=== PATIENT | female | born 1960 | race Caucasian/White ===

== ENCOUNTER → 2023-07-30 | Outpatient (CLI) | payer MEDICAID, SELFPAY ==
[2023-07-30] VITALS (15 sets, daily range): BP systolic 127–207; BP diastolic 66–132; PULSE 62–70; RESP 11–21; TEMP 36.2; O2SAT 89–96; BMI 41.5
--- NOTE | 2023-07-30 | ASPIGT_PTH ---
PATIENT: LAVON ROGERS LOC: CT U#:[id number] AGE/SX: 63/F ROOM: RE07/30/[address]: Dr. Alanna Clarke MD : 1960 BED: DIS: 07/30/2023 SPEC #: [id number] RECD: 07/30/23 09:30 STATUS: ALEJANDRO SAMANTA #: [id number] DAVION: 07/30/23 00:[address]: Alanna Clarke DEPT: SURGICAL PATHOLOGY RECD BY: Cristine Mcneil ENTERED: 07/30/23 10:01 SP TYPE: ASP RAD OTHR DR: Dr. Yadira Dupree MD Tissues: Lung, NOS Procedures: FNA Specimen Adequacy Special Stain Group II Surgery Specimen Level IV Imprint (control) HEADER OPERATION: Ct guided Right lung core biopsy PRE-OP DIAGNOSIS: Lung nodule TISSUE SUBMITTED: Ct right lung core biopsy MICROSCOPIC DIAGNOSIS Right lung, Ct guided core biopsy; Lung parenchymal tissue, negative for malignancy. See comment. FISH/ 08/02/2023 COMMENT The specimen is evaluated at the time of biopsy by Dr. Fournier. Immediate Evaluation = Negative for malignant cells. Correlation with clinical, radiologic findings and appropriate follow up are necessary. Case has been reviewed in consultation with Dr. Alonso who concurs with the above diagnosis. IDC:AM MICROSCOPIC DESCRIPTION Slides are reviewed. GROSS DESCRIPTION Received in fixative is one container labeled with the patient's name and designated Right lung. The specimen consists of multiple irregular fragments of light snyder soft tissue that in aggregate measure 2.5 x 0.1 x <0.1 cm. The specimen is totally submitted in one cassette. Three touch imprints are prepared at the time of core biopsy. FISH/ 07/30/2023 TC:5 CPT: 46679,20102
[2023-07-30 08:09] LABS: Absolute Lymphocyte Count 2.01 X10^3/uL (0.83-4.51); Absolute Neutrophil Count 5.5 X10^3/uL (2.0-7.7); Basophil# 0.05 X10^3/uL; Basophil% 0.6 % (0-1); Eosinophil# 0.09 X10^3/uL; Eosinophils% 1.1 % (0-5); Hematocrit 46.3 % (37-47); Hemoglobin 14.5 g/dL (12.0-15.0); Lymphocyte # 2.01 X10^3/ul (0.83-4.51); Lymphocyte % 24.2 % (19-41); Mean Corp Hgb Conc 31.3 g/dL (32-36); Mean Corpuscular Hgb 27.9 pg (27.0-32.0); Mean Corpuscular Volume 89.2 fL (81-99); Mean Platelet Vol. 11.3 fl (6.2-12.0); Monocyte# 0.63 X10^3/uL; Monocyte% 7.6 % (0-10); NRBC Flagged by Analyzer 0 % (0-5); Neutrophil # 5.49 X10^3/uL (2.7-7.7); Platelet Count 202 K/mm3 (150-450); RBC Distribution Width CV 13.9 % (11.6-14.6); RBC Distribution Width SD 45.1 fl (35.1-43.9); Red Blood Count 5.19 M/mm3 (4.2-5.4); White Blood Count 8.3 K/mm3 (4.4-11.0)
[2023-07-30 08:16] LABS: International Normalized Ratio 0.9; Prothrombin Time (Protime)PT. 12.3 SECONDS (11.7-14.9)
[2023-07-30 08:17] LABS: Partial Thromboplast Time 27.4 Seconds (24.1-36.2)
[2023-07-30] MEDS: 0.9% Normal Saline (250mL Bag) 250 ML 15 ML IV (08:44)
[2023-07-30] MEDS: 0.9% Saline Lock 10 ML Syringe IV (08:49)
[2023-07-30] MEDS: Midazolam 2 MG/2 ML Syringe IV (09:14)
[2023-07-30] MEDS: fentaNYL 100 MCG/2 ML Ampul IV (09:15)
[2023-07-30] MEDS: Lidocaine 2% (20 ml mdv) 20 ML Vial INFILT (09:24)
[2023-07-30] MEDS: Ondansetron 4 MG/2 ML Vial IV (09:45)
--- NOTE | 2023-07-30 09:45 | RAD_ITS ---
STUDY: X-RAY CHEST REASON FOR EXAM: Female, 63 years old. Immediately post lung biopsy -- Immediately post lung biopsy TECHNIQUE: AP inspiration and expiration views. COMPARISON: None. FINDINGS: The patient is status post right lung biopsy. No evidence of pneumothorax. RAD/Chest Insp/Exp 2 View IMPRESSION: No evidence of pneumothorax on the immediate post right lung biopsy radiographs. Electronically Signed: Everett Do MD at 10:23 EDT ,
--- NOTE | 2023-07-30 10:20 | PRO.PCM_ITS ---
Procedure Report Date of Procedure: 07/30/23 Assessment & Plan Assessment/Plan (1) Right lower lobe pulmonary nodule: PLAN: PROCEDURE: CT GUIDED CORE NEEDLE LUNG BIOPSY ORDERING PROVIDER: Dr. Clarke INDICATION: Female, 63 years old. Right lower lobe pulmonary nodule. PROVIDER: MARGARET Craven CONSENT: Written informed consent was obtained having explained the risks, benefits and alternatives in detail with the patient who accepted the risks and agreed to proceed. Laboratory review and clinical assessment was performed. PRE-PROCEDURE SEDATION ASSESSMENT: Current history and physical dictated by referring physician and reviewed. No clinical changes since date of exam. Patient has an ASA Class of 2. PROCEDURAL SEDATION PROTOCOL: The Drugs used were: 2 mg Versed, IV, and 50 mcg Fentanyl, IV. The sedation time was: 18 minutes, starting at 9:14 AM and terminated at 9:32 AM. The procedural sedation protocol was independently monitored by the department nurse. RADIATION DOSAGE (If Supplied By Facility): CTDIvol = 100.74 mGy, DLP = 936.02 mGycm Individualized dose optimization techniques were used for this CT. TECHNIQUE: The patient was placed in a prone position. A noncontrast CT was performed to localize the lesion in the right lower lobe. The skin surface was prepped and draped in a sterile fashion. 2% lidocaine was used for local anesthesia. Using CT guidance, a 20-gauge coaxial biopsy device was advanced to the periphery of the lesion. A total of 5 core specimens were obtained. Specimens were microscopically reviewed by pathology in the CT suite and placed in formalin solution. BioSentry tract sealant system was deployed at the biopsy site, and the biopsy needle was removed. A sterile occlusive dressing was applied to the biopsy site. The patient tolerated the procedure well. An immediate chest xray was ordered, per protocol. A negative biopsy does not exclude malignancy. Further imaging or clinical followup based on patient condition and degree of clinical suspicion for malignancy. Suggest rebiopsy, if biopsy results do not match with clinical scenario. IMPRESSION: 1. CT directed core needle biopsy of right lower lobe nodule using CT image g uidance with image documentation as described. Pathology results are pending. 2. Procedural Sedation protocol utilized with independent monitoring by the department nurse. Procedures Radiology Radiology CT Procedures: [id number] Biopsy Lung
[2023-07-30] MEDS: Ketorolac 30 MG/ML Syringe IV (10:33)
--- NOTE | 2023-07-30 11:45 | RAD_ITS ---
STUDY: X-RAY CHEST REASON FOR EXAM: Female, 63 years old. 2 hours post lung biopsy -- 2 hours post lung biopsy TECHNIQUE: AP inspiration and expiration views. COMPARISON: Comparison is made with prior study done earlier today. FINDINGS: Stable small minimal right apical pneumothorax. The patient is asymptomatic. RAD/Chest Insp/Exp 2 View IMPRESSION: Stable small minimal right apical pneumothorax. The patient is asymptomatic. Electronically Signed: Everett Do MD at 12:06 EDT ,
== END | disposition home or self-care (01) ==
LOC: CT 07:49
PROVIDERS: PCP Family Medicine; Referring Provider Internal Medicine Hematology & Oncology; Visit Provider Internal Medicine Hematology & Oncology
DX: Z01.812 Encounter for preprocedural laboratory examination (principal); R91.1 Solitary pulmonary nodule
CPT/HCPCS: 32408; 36415; 71046; 77012; 85025; 85610; 85730; 88172; 88305; 88313; 99156; J7050; A4216; C2613; J2405